=== PATIENT | female | born 1975 | race African-American/Black ===

== ENCOUNTER 2020-11-11 18:38 | Emergency (ER) | payer MEDICAID, OTHER, SELFPAY ==
[2020-11-11 20:05] VITALS: BP 148/89
--- NOTE | 2020-11-11 20:37 | Emergency Department Report ---
- General Chief Complaint: Upper Respiratory Infection Stated Complaint: +COVID/HEADACHE/FEVER/NAUSEA Time Seen by Provider: 11/11/20 20:26 Source: patient Mode of arrival: Ambulatory Limitations: No Limitations - History of Present Illness Initial Comments: Patient is a 45-year-old female presents emergency room with complaints of symptoms of COVID 19 that began 11/03/20. Patient states that she tested positive for COVID-19. She has associated headache, nausea, vomiting, decreased appetite, chills. Patient states that she had approximately 3 episodes of vomiting. She denies any diarrhea, fever, shortness of breath, chest pain, abdominal pain. Past medical history of diabetes. No allergies to medications. She has not been vaccinated for COVID-19. - Related Data Previous Rx's Medication Instructions Recorded Last Taken Type Acetaminophen/Codeine [Tylenol #3] 1 tab PO Q6H PRN #15 tab 08/16/14 Unknown Rx Cyclobenzaprine [Flexeril 10mg] 10 mg PO TID PRN #15 tablet 08/16/14 Unknown Rx Ibuprofen [Motrin] 800 mg PO Q8H PRN #21 tablet 08/16/14 Unknown Rx Butalb/Acetaminophen/Caffeine 1 cap PO Q8HR PRN #10 cap 11/11/20 Unknown Rx [Fioricet 50-300-40 mg CAP] Ondansetron [Zofran Odt] 4 mg PO Q8HR PRN #12 tab.rapdis 11/11/20 Unknown Rx Allergies Allergy/AdvReac Type Severity Reaction Status Date / Time No Known Allergies Allergy Unverified 08/15/14 21:34 ED Review of Systems ROS: Stated complaint: +COVID/HEADACHE/FEVER/NAUSEA Other details as noted in HPI Comment: All other systems reviewed and negative ED Past Medical Hx - Past Medical History Previous Medical History?: Yes Hx Diabetes: Yes - Surgical History Past Surgical History?: Yes Additional Surgical History: 2 ectopic , tubal ligation - Social History Smoking Status: Never Smoker Substance Use Type: None - Medications Home Medications: Home Medications Medication Instructions Recorded Confirmed Last Taken Type Acetaminophen/Codeine [Tylenol #3] 1 tab PO Q6H PRN #15 tab 08/16/14 Unknown Rx Cyclobenzaprine [Flexeril 10mg] 10 mg PO TID PRN #15 tablet 08/16/14 Unknown Rx Ibuprofen [Motrin] 800 mg PO Q8H PRN #21 tablet 08/16/14 Unknown Rx Butalb/Acetaminophen/Caffeine 1 cap PO Q8HR PRN #10 cap 11/11/20 Unknown Rx [Fioricet 50-300-40 mg CAP] Ondansetron [Zofran Odt] 4 mg PO Q8HR PRN #12 tab.rapdis 11/11/20 Unknown Rx ED Physical Exam - General Limitations: No Limitations General appearance: alert, in no apparent distress - Head Head exam: Present: atraumatic, normocephalic - Eye Eye exam: Present: normal appearance - ENT ENT exam: Present: normal orophraynx, mucous membranes moist - Respiratory Respiratory exam: Present: normal lung sounds bilaterally. Absent: respiratory distress, wheezes, rales, rhonchi, stridor, chest wall tenderness, accessory muscle use, decreased breath sounds, prolonged expiratory - Cardiovascular Cardiovascular Exam: Present: regular rate, normal rhythm, normal heart sounds. Absent: systolic murmur, diastolic murmur, rubs, gallop - Neurological Exam Neurological exam: Present: alert, oriented X3 - Psychiatric Psychiatric exam: Present: normal affect, normal mood - Skin Skin exam: Present: warm, dry, intact ED Course Vital Signs 11/11/20 19:54 Temperature 98.8 F Pulse Rate 84 Respiratory 16 Rate Blood Pressure 148/89 O2 Sat by Pulse 98 Oximetry ED Medical Decision Making - Medical Decision Making Patient is a 45-year-old female presents emergency room with complaints of symptoms of COVID 19 that began 11/03/20. Patient states that she tested positive for COVID-19. She has associated headache, nausea, vomiting, decreased appetite, chills. Patient states that she had approximately 3 episodes of vomiting. She denies any diarrhea, fever, shortness of breath, chest pain, abdominal pain. Past medical history of diabetes. No allergies to medications. She has not been vaccinated for COVID-19. Vitals are stable. No hypoxia, no fever, no tachycardia. No abnormality on physical examination as documented in chart, moist mucous membranes, no signs of clinically significant dehydration, breath sounds are clear bilaterally, no wheezing, no rales, no rhonchi. Patient has no severe signs of COVID 19, no tachypnea, no hypoxia. Patient given pr escription for medication for symptomatic relief. Mina supportive care and symptomatic treatment with patient. discussed very strict return precautions. Advised patient Please take medication as prescribed. Please increase your fluid intake over the next several days. Follow-up with a primary care doctor for reexamination. Return to emergency room immediately for any new or worsening symptoms including but not limited to difficulty breathing, shortness of breath, severe chest pain, unable to tolerate by mouth intake, etc. Please self quarantine for days from the onset of your symptoms. Please do not go out in public. If you are around others at home please wear a mask. If you need to cough or sneeze please do so in a napkin and immediately throw it away and immediately wash your hands. Wash your hands frequently. Wipe everything down. Critical care attestation.: If time is entered above; I have spent that time in minutes in the direct care of this critically ill patient, excluding procedure time. ED Disposition Clinical Impression: COVID-19 Disposition: 01 HOME / SELF CARE / HOMELESS Is pt being admited?: No Does the pt Need Aspirin: No Condition: Stable Instructions: COVID-19 Additional Instructions: Please take medication as prescribed. Please increase your fluid intake over the next several days. Follow-up with a primary care doctor for reexamination. Return to emergency room immediately for any new or worsening symptoms including but not limited to difficulty breathing, shortness of breath, severe chest pain, unable to tolerate by mouth intake, etc. Please self quarantine for days from the onset of your symptoms. Please do not go out in public. If you are around others at home please wear a mask. If you need to cough or sneeze please do so in a napkin and immediately throw it away and immediately wash your hands. Wash your hands frequently. Wipe everything down. Prescriptions: Butalb/Acetaminophen/Caffeine [Fioricet 50-300-40 mg CAP] 1 cap PO Q8HR PRN #10 cap PRN Reason: headache Ondansetron [Zofran Odt] 4 mg PO Q8HR PRN #12 tab.rapdis PRN Reason: vomiting Referrals: MIGUEL ÁNGEL STOCKTON MD [Staff Physician] - 2-3 Days [facility] [Provider Group] - 2-3 Days Time of Disposition: 20:36 Print Language: NEPALI
== END 2020-11-11 20:40 | disposition home or self-care (01) ==
LOC: ED 18:38
DX: U07.1 COVID-19 (principal); E11.9 Type 2 diabetes mellitus without complications; Z98.51 Tubal ligation status; Z98.890 Other specified postprocedural states; Z79.899 Other long term (current) drug therapy
CPT/HCPCS: 99281